=== PATIENT | female | born 1970 | race Caucasian/White ===

== ENCOUNTER 2018-07-07 13:25 | Inpatient (IN) ==
[2018-07-07] MEDS ORDERED: ACETAMINOPHEN 1,000 MG/100 ML VIAL IV STA (13:59)
[2018-07-07] MEDS ORDERED: SODIUM CHLORIDE 0.9% 1000ML 2,000 ML IV SCH (14:00)
--- NOTE | 2018-07-07 14:16 | XRay Report ---
XR chest 1V portable HISTORY: 47 years-old Female right abd Pain acute right-sided abdominal pain COMPARISON: Chest radiograph 09/04/2011 TECHNIQUE: Portable AP view of the chest FINDINGS: Cardiac mediastinal and hilar silhouettes are within normal limits. There is no pneumothorax, pleural effusion, focal airspace consolidation or overt pulmonary edema. Bones of the chest appear grossly i ntact. Imaged upper abdomen appears unremarkable. IMPRESSION: No acute process. The above report was generated using voice recognition software. It may contain grammatical, syntax o r spelling errors. Electronically signed by: Fuad Stroud M.D. 07/07/2018 2:14 PM
[2018-07-07 14:19] LABS: Basophils # (auto) 0.02 K/uL (0-0.2); Basophils % (auto) 0.1 %; Hemoglobin 12.1 g/dL (12.0-16.0); Immature Granulocytes # (auto) 0.08 K/uL (0.00-0.02); Immature Granulocytes % (auto) 0.4 %; Lymphocytes # (auto) 1.08 K/uL (1.2-3.4); Lymphocytes % (auto) 5.4 %; Mean Corpuscular Hgb Conc 35.6 g/dL (32-36); Mean Corpuscular Volume 85.2 fL (80-100); Mean Platelet Volume 10.1 fL (7.4-10.4); Monocytes # (auto) 1.62 K/uL (0.11-0.59); Monocytes % (auto) 8.1 %; Neutrophils # (auto) 17.11 K/uL (1.4-6.5); Platelet Count 242 K/uL (130-400); RDW Coefficient of Variation 12.7 % (11.5-14.5); RDW Standard Deviation 39.7 fL (36.4-46.3); Red Blood Count 3.99 M/uL (4.2-5.4); White Blood Count 19.91 K/uL (4.8-10.8)
[2018-07-07 14:27] LABS: Appearance Urine Cloudy (Clear); Bacteria Urine Automated 4+ (Negative); Bilirubin Urine Negative (Negative); Blood Urine 2+ (Negative); Color Urine Yellow; Glucose Urine UA Negative (Negative); Ketones Urine Negative (Negative); Leukocyte Esterase Urine 2+ (Negative); Nitrite Urine Positive (Negative); Protein Urine Negative (Negative); Specific Gravity Urine 1.011 (1.000-1.030); Urobilinogen Urine Negative (Negative); WBC Urine Automated >30 /hpf (0-5); pH Urine 6.5 (4.5-7.5)
[2018-07-07 14:32] LABS: Pregnancy Test, Serum Negative (Negative)
[2018-07-07 14:35] LABS: Alanine Aminotransferase 13 U/L (12-78); Albumin Level 3.3 gm/dl (3.4-5.0); Aspartate Aminotransferase 11 U/L (15-37); BUN Creatinine Ratio 7.7 (10-20); Blood Urea Nitrogen 6 mg/dl (7-18); Calcium 8.8 mg/dl (8.5-10.1); Carbon Dioxide 18 mmol/L (21-32); Chloride 105 mmol/L (98-107); Est GFR (African American) 104.9; Est GFR (Non-African American) 90.5; Glucose 107 mg/dl (70-99); Potassium 3.4 mmol/L (3.5-5.1); Sodium 133 mmol/L (136-145)
[2018-07-07 14:38] LABS: Albumin Globulin Ratio 0.9 (0.9-2); Alkaline Phosphatase 49 U/L (45-117); Bilirubin,Total 0.3 mg/dl (0.2-1); Globulin 3.7 gm/dl (2.5-4.0)
[2018-07-07] MEDS ORDERED: cefTRIAXone SODIUM 1,000 MG/50 ML BAG IV STA (14:51)
[2018-07-07] MEDS ORDERED: SODIUM CHLORIDE 0.9% 1000ML 1,000 ML IV ONE (14:52)
[2018-07-07] MEDS ORDERED: IOVERSOL 100ml IV PRN (16:18)
--- NOTE | 2018-07-07 16:31 | CT Scan Report ---
CT SCAN OF THE ABDOMEN AND PELVIS WITH IV CONTRAST CLINICAL HISTORY: Fever. Right lower quadrant and flank pain. COMPARISON STUDY: Radiographs of the lumbar spine dated 07/15/2007. TECHNIQUE: Following the IV administration of 91 cc of Optiray 320, CT scan of the abdomen and pelvi s is performed from the lung bases to the proximal femora. Images are reviewed in the axial, sagittal , and coronal planes. IV contrast was administered without complication. A dose lowering technique wa s utilized adhering to the principles of ALARA. CT DOSE: 252.61 mGy.cm FINDINGS: Lung bases: The heart is normal in size and without pericardial effusion. The lung bases are clear. Liver: The contrast-enhanced liver is normal in size, contour, and attenuation. There is no intrahepa tic biliary ductal dilatation. The hepatic veins and portal veins are patent. Gallbladder: Unremarkable. Spleen: Normal in size and attenuation. Pancreas: Unremarkable. Adrenal glands: Unremarkable. Kidneys: The contrast enhanced kidneys are normal in size and without hydronephrosis. There is mild f ullness of the right renal collecting system and the right ureter. There is urothelial thickening and enhancement seen involving the right kidney and the right ureter with mild surrounding inflammatory change. A 12 mm low-attenuation focus is present within the upper pole of the right kidney on image # 132. There is heterogeneous enhancement of the right kidney with a striated nephrogram. The left kidn ey enhances homogeneously. Abdominal vasculature: The abdominal aorta is normal in course and caliber. Bowel: The small bowel and colon are normal in course and caliber. The appendix is well-visualized a nd normal. Peritoneum: There is no intraperitoneal free air or abdominal ascites. Lymphadenopathy: None. Pelvic viscera: The bladder and uterus are normal as imaged. A tampon is in place. A 2.7 cm simple ap pearing dominant follicle is noted in the left ovary seen on image #309. Smaller follicles are noted in the right ovary. A small volume of free fluid is noted in the cul-de-sac. Skeletal structures: No lytic or blastic lesions are seen. Mild sclerotic change is noted in the sacr oiliac joints. IMPRESSION: 1. Findings are most atypical for pyelonephritis of the right kidney as detailed above. Correlation w ith clinical findings and urinalysis will be required. 2. There is heterogeneous perfusion of the right kidney with a 1.2 cm low-attenuation focus in the ri ght upper pole. This may represent developing phlegmon. No organized fluid collection is seen at this time to indicate abscess 3. The left kidney is normal in appearance. 4. There is trace nonspecific free fluid in the cul-de-sac and a dominant follicle noted in the left ovary. 5. The appendix is well-visualized and normal. Electronically signed by: Christian Bruno M.D. 07/07/2018 4:30 PM
[2018-07-07] MEDS ORDERED: SODIUM CHLORIDE 0.9% 1000ML 1,000 ML IV STA (17:33)
--- NOTE | 2018-07-07 18:26 | History & Physical Report ---
Date of Service July 07, 2018 Assessment & Plan (1) Sepsis: Appropriately resuscitated in the ER. Patient is feeling better. Lactate is normal. Continue IV fluids. (2) Acute pyelonephritis: Treating empirically with ceftriaxone pending urine and blood cultures. Urology is consulted for questionable collection of fluid or around this kidney. N.p.o. after midnight in case of procedure (3) Smoker: Advised to quit. Patient declines nicotine patch at this time. (4) Anxiety: Uses marijuana frequently. Advised to quit as this is hazardous to her health. May need to consider Ativan as needed (5) DVT prophylaxis: SCDs for now in the setting of possible procedure in a.m. If procedures not occur would give her chemoprophylaxis for DVT prevention. Full code Disposition-continue hospitalization pending urine cultures and clinical improvement. DO Lonny Olea Hospitalist History of Present Illness Chief Complaint: Right flank pain and fever times 3 days Primary Care Provider: NO PCP The patient is a 47-year-old female who presents with 3 days of right flank pain, chills, fevers, body aches. She reports of nausea and vomiting that began this morning prompting ER visit. She denies any cough or other respiratory symptoms. She denies any chest pain. She does report some dysuria and incomplete voiding. Workup reveals presence of infection in her urine and she did meet sepsis criteria and was resuscitated in the ER. CT scan of the abdomen pelvis reveals pyelonephritis of the right kidney associated with a 1.2 cm focus that may represent a developing phlegmon. No organized fluid collection was seen at the time of imaging to indicate abscess for sure. Aside from reporting significant thirst she is feeling better. Her pain is still present but is improved with Tylenol. She did have some vomiting associated with IV Tylenol but felt better with the oral Tylenol given to her. She smokes marijuana regularly. She is an active tobacco smoker. No other illicit drug use. Review of systems is otherwise negative. Allergies Allergy/AdvReac Type Severity Reaction Status Date / Time Penicillins Allergy Mild Unknown Unverified 07/07/18 15:53 Home Medications Home Medications Medication Instructions Recorded Confirmed Type fluticasone propionate [Flonase 1 spray INTRANASAL DAILY 07/07/18 07/07/18 History Allergy Relief] loratadine [Claritin] 10 mg PO DAILY 07/07/18 07/07/18 History Past Med/Surg History Medical History Allergic rhinitis Anxiety Marijuana smoker No significant family history No significant past surgical history Smoker Spontaneous pneumothorax Surgical History S/P lumbar laminectomy Family History Mother , at age 33 Colorectal cancer Social History Preferred Language: Indonesian Communication Ability: Effective Records Analysis Manager Required: No Beliefs That Will Affect Care: None Current Living Situation: Significant Other Other Information That Helps Us Care for You: No Feels Safe at Home: Yes Safety Concerns: Feels Safe At This Time Smoking Status: Current every day smoker Hx Alcohol Use: Yes Hx Substance Use: Yes Review of Systems At least ten systems were reviewed and negative except as indicated in HPI ab ove. Physical Exam Vital Signs (Past 24 Hours): Last Vital Signs Temp 37.2 C 07/07/18 18:00 Pulse 89 07/07/18 17:58 Resp 18 07/07/18 17:58 BP 100/60 07/07/18 17:58 Pulse Ox 99 07/07/18 17:58 CONSTITUTIONAL: WNWD, vitals as above, generally well-appearing EYES: normal conjuctivae, no scleral icterus ENT: MMM RESPIRATORY: clear to auscultation bilaterally, no crackles, rales or wheezes, normal respiratory effort CARDIOVASCULAR: regular rate and rhythm, S1 and 2 heard without murmurs, gallops or rubs, no JVD, no peripheral edema GASTROINTESTINAL: normal bowel sounds, soft, TTP on right abdomen, +CVA tenderness on right, nondistended. MUSCULOSKELETAL: strength 5/5 throughout, head is normocephalic and atraumatic SKIN: warm and dry NEUROLOGIC: CN 2-12 grossly intact, normal cognition, no gross focal deficits. PSYCHIATRIC: alert cooperative and oriented to person, place and time. Results & Data Laboratory Results Short CBC 07/07/18 Range/Units 13:54 WBC 19.91 H (4.8-10.8) K/uL Hgb 12.1 (12.0-16.0) g/dL Hct 34.0 L (37-47) % Plt Count 242 (130-400) K/uL BMP 07/07/18 13:54 Sodium 133 L Potassium 3.4 L Chloride 105 Carbon Dioxide 18 L BUN 6 L Creatinine 0.78 Glucose 107 H Calcium 8.8 Liver Function 07/07/18 Range/Units 13:54 Total Bilirubin 0.3 (0.2-1) mg/dl AST 11 L (15-37) U/L ALT 13 (12-78) U/L Alkaline Phosphatase 49 (45-117) U/L Albumin 3.3 L (3.4-5.0) gm/dl Urine 07/07/18 Range/Units 13:50 Urine Color Yellow Urine Appearance Cloudy H (Clear) Urine pH 6.5 (4.5-7.5) Ur Specific [place] 1.011 (1.000-1.030) Urine Protein Negative (Negative) Urine Glucose (UA) Negative (Negative) Diagnostic Findings CT a/p IMPRESSION: 1. Findings are most atypical for pyelonephritis of the right kidney as detailed above. Correlation with clinical findings and urinalysis will be required. 2. There is heterogeneous perfusion of the right kidney with a 1.2 cm low- attenuation focus in the right upper pole. This may represent developing phlegmon. No organized fluid collection is seen at this time to indicate abscess 3. The left kidney is normal in appearance. 4. There is trace nonspecific free fluid in the cul-de-sac and a dominant follicle noted in the left ovary. 5. The appendix is well-visualized and normal. XR chest 1V portable HISTORY: 47 years-old Female right abd Pain acute right-sided abdominal pain COMPARISON: Chest radiograph 09/04/2011 TECHNIQUE: Portable AP view of the chest FINDINGS: Cardiac mediastinal and hilar silhouettes are within normal limits. There is no pneumothorax, pleural effusion, focal airspace consolidation or overt pulmonary edema. Bones of the chest appear grossly intact. Imaged upper abdomen appears unremarkable. IMPRESSION: No acute process. Medications Administered Ioversol (Optiray 320 100ml) 91 ml IV ONCE PRN PRN Reason: Interaction Checking Stop: 07/11/18 16:17 Last Admin: 07/07/18 16:18 Dose: 91 ml Documented by: [id number] Ceftriaxone 1gm IV APAP 1gm IV Code Status & VTE Plan Code Status full VTE Prophylaxis Plan VTE Prophylaxis will be ordered: Yes Critical Care Time Critical Care Time: No
[2018-07-07] MEDS ORDERED: ONDANSETRON INJ 2 MG/ML 2 ML VIAL IV STA (19:09)
[2018-07-07] MEDS ORDERED: POLYETHYLENE (MIRALAX) 17 GM PACK PO PRN (20:15)
[2018-07-07] MEDS ORDERED: ONDANSETRON INJ 2 MG/ML 2 ML VIAL IV PRN (20:15)
[2018-07-07] MEDS ORDERED: ACETAMINOPHEN 325 MG TAB ONE (20:25)
--- NOTE | 2018-07-07 20:29 | Emergency Department Note ---
Entered by Thea Schulte acting as a scribe for Hansel Goyal MD History of Present Illness General Chief complaint: Flank Pain Stated complaint: SIDE/BACK PAIN,CHILLS, ACHES,FEVER,THIRSTY!! Time Seen by Provider: 07/07/18 13:55 Source: patient Limitations: no limitations History of Present Illness Provider complaint: flank pain Onset (ago): day(s) 3 Location: abdomen (flank ) Radiation: back Maximum Pain Intensity: 8 Associated symptoms: + denies other symptoms (congestion, burning with urination) and + nausea/vomiting; no cough The patient is a 47 year old female who presents to the Emergency Room with complaints of flank pain that began 3 days prior to arrival. The patient states that her flank pain radiates to her back. The patient states that she has nausea and vomiting but denies any cough, congestion, or burning with urination. The patient states that she had a follow-up appointment with her PCP and states that her PCP was concerned about her fast heart rate. The patient denies any other medical problems. The patient denies a history of kidney stones or having her gallbladder removed. Home Medications Home Medications Medication Instructions Recorded Confirmed Type fluticasone propionate [Flonase 1 spray INTRANASAL DAILY 07/07/18 07/07/18 History Allergy Relief] loratadine [Claritin] 10 mg PO DAILY 07/07/18 07/07/18 History Allergies Allergy/AdvReac Type Severity Reaction Status Date / Time Penicillins Allergy Mild Unknown Unverified 07/07/18 15:53 Past Med/Surg History Medical History Allergic rhinitis Anxiety Marijuana smoker No significant family history No significant past surgical history Smoker Spontaneous pneumothorax Surgical History S/P lumbar laminectomy Family History Mother , at age 33 Colorectal cancer Social History Preferred Language: Finnish Communication Ability: Effective 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 and A total of 10 systems reviewed and were otherwise negative See HPI for pertinent positives & negatives. A total of 10 systems reviewed and were otherwise negative. Physical Exam Vital Signs Vital Signs - 24 hr 07/07/18 13:29 07/07/18 13:59 07/07/18 14:38 Temperature 39.2 C H Temperature Source Oral Sepsis Recent Fever Within 48 Hours Yes Sepsis New/Unexplained Change in Mental Status No Sepsis Action Taken by Nursing No Action Required Pulse Rate 100 H 80 Pulse Rate [Apical] Pulse Rate [Right Finger] Pulse Rate from SpO2 Sensor Pulse Rhythm [Right Finger] Pulse Strength [Right Finger] Respiratory Rate 18 20 Respiratory Effort / Characteristics Non-Labored Respiratory Depth Normal Respiratory Pattern Blood Pressure 96/61 L 99/73 L Blood Pressure [Right Arm] Blood Pressure Mean 72 81 Blood Pressure Mean [Right Arm] Blood Pressure Position Sitting Blood Pressure Position [Right Arm] Pulse Oximetry 97 99 Oxygen Delivery Method Room Air Room Air 07/07/18 15:26 07/07/18 17:58 07/07/18 18:00 Temperature 37.4 C 37.2 C Temperature Source Oral Oral Sepsis Recent Fever Within 48 Hours Sepsis New/Unexplained Change in Mental Status Sepsis Action Taken by Nursing Pulse Rate 89 Pulse Rate [Apical] 89 Pulse Rate [Right Finger] Pulse Rate from SpO2 Sensor 90 Pulse Rhythm [Right Finger] Pulse Strength [Right Finger] Respiratory Rate 20 18 Respiratory Effort / Characteristics Respiratory Depth Respiratory Pattern Blood Pressure 100/60 Blood Pressure [Right Arm] 99/64 L Blood Pressure Mean 73 Blood Pressure Mean [Right Arm] 75 Blood Pressure Position Blood Pressure Position [Right Arm] Pulse Oximetry 99 99 Oxygen Delivery Method Room Air 07/07/18 19:42 07/07/18 20:31 07/07/18 22:20 Temperature 37.8 C H 37.1 C 37.7 C H Temperature Source Oral Oral Oral Sepsis Recent Fever Within 48 Hours Sepsis New/Unexplained Change in Mental Status Sepsis Action Taken by Nursing Pulse Rate Pulse Rate [Apical] 85 Pulse Rate [Right Finger] 85 Pulse Rate from SpO2 Sensor Pulse Rhythm [Right Finger] Regular Pulse Strength [Right Finger] Normal Respiratory Rate 18 20 Respiratory Effort / Characteristics Non-Labored Spontaneous Respiratory Depth Normal Respiratory Pattern Regular Blood Pressure Blood Pressure [Right Arm] 105/59 L 109/71 Blood Pressure Mean Blood Pressure Mean [Right Arm] 74 83 Blood Pressure Position Blood Pressure Position [Right Arm] Sitting Pulse Oximetry 98 100 Oxygen Delivery Method Room Air Room Air 07/07/18 23:08 Temperature 37.2 C Temperature Source Oral Sepsis Recent Fever Within 48 Hours Sepsis New/Unexplained Change in Mental Status Sepsis Action Taken by Nursing Pulse Rate Pulse Rate [Apical] Pulse Rate [Right Finger] 82 Pulse Rate from SpO2 Sensor Pulse Rhythm [Right Finger] Pulse Strength [Right Finger] Respiratory Rate 14 Respiratory Effort / Characteristics Respiratory Depth Respiratory Pattern Blood Pressure Blood Pressure [Right Arm] 93/55 L Blood Pressure Mean Blood Pressure Mean [Right Arm] 67 Blood Pressure Position Blood Pressure Position [Right Arm] Lying Pulse Oximetry 96 Oxygen Delivery Method Room Air GENERAL: Awake, alert, fatigued and uncomfortable-appearing, in no distress HENT: Normocephalic, atraumatic. Oropharynx with dry mucous membranes and otherwise unremarkable. EYES: Normal conjunctiva. Sclera non-icteric. NECK: Supple. No nuchal rigidity. FROM. No JVD. RESPIRATORY: Clear to auscultation. CARDIAC: Tachycardic rate, normal rhythm. Extremities warm and well perfused. Pulses equal. ABDOMEN: Soft, non-distended. Mild right flank and RLQ tenderness to palpation. No rebound or guarding. No masses. RECTAL: Deferred. MUSCULOSKELETAL: Chest examination reveals no tenderness. The back is symmetrical on inspection without obvious abnormality. There is no CVA tenderness to palpation. No joint edema. LOWER EXTREMITIES: Calves are equal size bilaterally and non-tender. No edema. No discoloration. NEURO: Normal sensorium. No sensory or motor deficits noted. SKIN: No rash or jaundice noted. Course 1412: The patient was evaluated in room C9, and a complete history and physical examination were performed. 1730: I discussed the patient's case with Dr. Divya Morel who will evaluate the patient for further hospitalization. Consultations Consultation #1: Dr. Divya Morel Time: 17:30 Administered Medications Acetaminophen (Tylenol) 650 mg PO Q4H PRN PRN Reason: pain/fever Stop: 08/06/18 20:14 Last Admin: 07/07/18 23:56 Dose: 650 mg Documented by: [id number] Sodium Chloride (Nss 1000ml) 1,000 mls @ 125 mls/hr IV .Q8H HERMAN Stop: 07/08/18 05:44 Last Admin: 07/07/18 21:46 Dose: 125 mls/hr Documented by: [id number] Ioversol (Optiray 320 100ml) 91 ml IV ONCE PRN PRN Reason: Interaction Checking Stop: 07/11/18 16:17 Last Admin: 07/07/18 16:18 Dose: 91 ml Documented by: [id number] Tramadol HCl (Ultram) 50 mg PO Q4H PRN PRN Reason: Pain Stop: 08/06/18 21:07 Last Admin: 07/07/18 21:30 Dose: 50 mg Documented by: [id number] Discontinued Medications Acetaminophen (Tylenol) Confirm Administered Dose 650 mg .ROUTE .STK-MED ONE Stop: 07/07/18 20:26 Last Admin: 07/07/18 20:30 Dose: 650 mg Documented by: [id number] Acetaminophen (Ofirmev) 1,000 mg in 100 mls @ 400 mls/hr IV NOW STA Stop: 07/07/18 14:13 Last Infusion: 07/07/18 14:58 Dose: 0 mls/hr Documented by: [id number] Admin: 07/07/18 14:38 Dose: 400 mls/hr Documented by: [id number] Sodium Chloride (Nss 1000ml) 2,000 mls @ 999 mls/hr IV .Q2H1M HERMAN Stop: 07/07/18 16:00 Last Infusion: 07/07/18 14:59 Dose: 0 mls/hr Documented by: [id number] Admin: 07/07/18 14:00 Dose: 999 mls/hr Documented by: [id number] Ceftriaxone Sodium (Rocephin) 1,000 mg in 50 mls @ 100 mls/hr IV NOW STA Stop: 07/07/18 15:20 Last Infusion: 07/07/18 16:30 Dose: 0 mls/hr Documented by: [id number] Admin: 07/07/18 16:00 Dose: 100 mls/hr Documented by: [id number] Sodium Chloride (Nss 1000ml) 1,000 mls @ 999 mls/hr IV .Q1H1M ONE Stop: 07/07/18 15:52 Last Infusion: 07/07/18 16:51 Dose: 0 mls/hr Documented by: [id number] Admin: 07/07/18 16:01 Dose: 999 mls/hr Documented by: [id number] Sodium Chloride (Nss 1000ml) 1,000 mls @ 125 mls/hr IV .Q8H STA Stop: 07/08/18 01:32 Last Infusion: 07/07/18 21:23 Dose: 0 mls/hr Documented by: [id number] Admin: 07/07/18 17:56 Dose: 125 mls/hr Documented by: [id number] Ondansetron HCl (Zofran) 4 mg IV NOW STA Stop: 07/07/18 19:10 Last Admin: 07/07/18 19:13 Dose: 4 mg Documented by: [id number] Medical Decision Making Differential Diagnosis Differential diagnosis: Etiologies such as renal colic, appendicitis, diverticulitis, mesenteric ischemia, aortic pathology, infections, inflammatory bowel disease, PUD, biliary pathology, UTI, as well as others were entertained. Medical Records Attestation: I reviewed the patient's medical records. Home Medications Current Medication List: was personally reviewed by me Laboratory Data Attestation: I reviewed the patient's lab results. Result diagrams: 07/07/18 13:54 07/07/18 13:54 Lab Results 07/07/18 07/07/18 07/07/18 Range/Units 13:50 13:50 13:54 WBC 19.91 H (4.8-10.8) K/uL RBC 3.99 L (4.2-5.4) M/uL Hgb 12.1 (12.0-16.0) g/dL Hct 34.0 L (37-47) % MCV 85.2 (80-100) fL MCH 30.3 (25-34) pg MCHC 35.6 (32-36) g/dL RDW Std Deviation 39.7 (36.4-46.3) fL RDW Coeff of Tamela 12.7 (11.5-14.5) % Plt Count 242 (130-400) K/uL MPV 10.1 (7.4-10.4) fL Immature Gran % (Auto) 0.4 % Neut % (Auto) 86.0 % Lymph % (Auto) 5.4 % [place] % (Auto) 8.1 % Eos % (Auto) 0.0 % Baso % (Auto) 0.1 % Immature Gran # (Auto) 0.08 H (0.00-0.02) K/uL Neut # (Auto) 17.11 H (1.4-6.5) K/uL Lymph # (Auto) 1.08 L (1.2-3.4) K/uL [place] # (Auto) 1.62 H (0.11-0.59) K/uL Eos # (Auto) 0.00 (0-0.5) K/uL Baso # (Auto) 0.02 (0-0.2) K/uL Sodium (136-145) mmol/L Potassium (3.5-5.1) mmol/L Chloride (98-107) mmol/L Carbon Dioxide (21-32) mmol/L Anion Gap (3-11) BUN (7-18) mg/dl Creatinine (0.6-1.2) mg/dl Est Cr Clr Drug Dosing Est GFR ( Amer) Est GFR (Non-Af Amer) BUN/Creatinine Ratio (10-20) Glucose (70-99) mg/dl Lactate (0.4-2.0) mmol/L Calcium (8.5-10.1) mg/dl Total Bilirubin (0.2-1) mg/dl AST (15-37) U/L ALT (12-78) U/L Alkaline Phosphatase (45-117) U/L Total Protein (6.4-8.2) gm/dl Albumin (3.4-5.0) gm/dl Globulin (2.5-4.0) gm/dl Albumin/Globulin Ratio (0.9-2) Lipase (73-393) U/L HCG, Qual (Negative) Urine Color Yellow Urine Appearance Cloudy H (Clear) Urine pH 6.5 (4.5-7.5) Ur Specific [place] 1.011 (1.000-1.030) Urine Protein Negative (Negative) Urine Glucose (UA) Negative (Negative) Urine Ketones Negative (Negative) Urine Blood 2+ H (Negative) Urine Nitrite Positive H (Negative) Urine Bilirubin Negative (Negative) Urine Urobilinogen Negative (Negative) Ur Leukocyte Esterase 2+ H (Negative) Urine WBC (Auto) >30 H (0-5) /hpf Urine RBC (Auto) 5-10 H (0-4) /hpf U Hyaline Cast (Auto) 1-5 (0-5) /lpf U Epithel Cells (Auto) 5-10 H (0-5) /lpf Urine Bacteria (Auto) 4+ H (Negative) POC Ur Test NEG (NEG) 07/07/18 07/07/18 07/07/18 Range/Units 13:54 13:54 15:43 WBC (4.8-10.8) K/uL RBC (4.2-5.4) M/uL Hgb (12.0-16.0) g/dL Hct (37-47) % MCV (80-100) fL MCH (25-34) pg MCHC (32-36) g/dL RDW Std Deviation (36.4-46.3) fL RDW Coeff of Tamela (11.5-14.5) % Plt Count (130-400) K/uL MPV (7.4-10.4) fL Immature Gran % (Auto) % Neut % (Auto) % Lymph % (Auto) % [place] % (Auto) % Eos % (Auto) % Baso % (Auto) % Immature Gran # (Auto) (0.00-0.02) K/uL Neut # (Auto) (1.4-6.5) K/uL Lymph # (Auto) (1.2-3.4) K/uL [place] # (Auto) (0.11-0.59) K/uL Eos # (Auto) (0-0.5) K/uL Baso # (Auto) (0-0.2) K/uL Sodium 133 L (136-145) mmol/L Potassium 3.4 L (3.5-5.1) mmol/L Chloride 105 (98-107) mmol/L Carbon Dioxide 18 L (21-32) mmol/L Anion Gap 10.0 (3-11) BUN 6 L (7-18) mg/dl Creatinine 0.78 (0.6-1.2) mg/dl Est Cr Clr Drug Dosing Not Reportable Est GFR ( Amer) 104.9 Est GFR (Non-Af Amer) 90.5 BUN/Creatinine Ratio 7.7 L (10-20) Glucose 107 H (70-99) mg/dl Lactate 0.7 (0.4-2.0) mmol/L Calcium 8.8 (8.5-10.1) mg/dl Total Bilirubin 0.3 (0.2-1) mg/dl AST 11 L (15-37) U/L ALT 13 (12-78) U/L Alkaline Phosphatase 49 (45-117) U/L Total Protein 7.0 (6.4-8.2) gm/dl Albumin 3.3 L (3.4-5.0) gm/dl Globulin 3.7 (2.5-4.0) gm/dl Albumin/Globulin Ratio 0.9 (0.9-2) Lipase 86 (73-393) U/L HCG, Qual Negative (Negative) Urine Color Urine Appearance (Clear) Urine pH (4.5-7.5) Ur Specific [place] (1.000-1.030) Urine Protein (Negative) Urine Glucose (UA) (Negative) Urine Ketones (Negative) Urine Blood (Negative) Urine Nitrite (Negative) Urine Bilirubin (Negative) Urine Urobilinogen (Negative) Ur Leukocyte Esterase (Negative) Urine WBC (Auto) (0-5) /hpf Urine RBC (Auto) (0-4) /hpf U Hyaline Cast (Auto) (0-5) /lpf U Epithel Cells (Auto) (0-5) /lpf Urine Bacteria (Auto) (Negative) POC Ur Test (NEG) Imaging Data Radiologist's Impression: Radiology results as stated below per my review and the radiologist's interpretation: XR chest 1V portable HISTORY: 47 years-old Female right abd Pain acute right-sided abdominal pain COMPARISON: Chest radiograph 09/04/2011 TECHNIQUE: Portable AP view of the chest FINDINGS: Cardiac mediastinal and hilar silhouettes are within normal limits. There is no pneumothorax, pleural effusion, focal airspace consolidation or overt pulmonary edema. Bones of the chest appear grossly intact. Imaged upper abdomen appears unremarkable. IMPRESSION: No acute process. The above report was generated using voice recognition software. It may contain grammatical, syntax or spelling errors. Electronically signed by: Fuad Stroud M.D. 07/07/2018 2:[address] SCAN OF THE ABDOMEN AND PELVIS WITH IV CONTRAST CLINICAL HISTORY: Fever. Right lower quadrant and flank pain. COMPARISON STUDY: Radiographs of the lumbar spine dated 07/15/2007. TECHNIQUE: Following the IV administration of 91 cc of Optiray 320, CT scan of the abdomen and pelvis is performed from the lung bases to the proximal femora. Images are reviewed in the axial, sagittal, and coronal planes. IV contrast was administered without complication. A dose lowering technique was utilized adhering to the principles of ALARA. CT DOSE: 252.61 mGy.cm FINDINGS: Lung bases: The heart is normal in size and without pericardial effusion. The lung bases are clear. Liver: The contrast-enhanced liver is normal in size, contour, and attenuation. There is no intrahepatic biliary ductal dilatation. The hepatic veins and portal veins are patent. Gallbladder: Unremarkable. Spleen: Normal in size and attenuation. Pancreas: Unremarkable. Adrenal glands: Unremarkable. Kidneys: The contrast enhanced kidneys are normal in size and without hydronephrosis. There is mild fullness of the right renal collecting system and the right ureter. There is urothelial thickening and enhancement seen involving the right kidney and the right ureter with mild surrounding inflammatory change. A 12 mm low-attenuation focus is present within the upper pole of the right kidney on image #132. There is heterogeneous enhancement of the right kidney with a striated nephrogram. The left kidney enhances homogeneously. Abdominal vasculature: The abdominal aorta is normal in course and caliber. Bowel: The small bowel and colon are normal in course and caliber. The appendix is well-visualized and normal. Peritoneum: There is no intraperitoneal free air or abdominal ascites. Lymphadenopathy: None. Pelvic viscera: The bladder and uterus are normal as imaged. A tampon is in place. A 2.7 cm simple appearing dominant follicle is noted in the left ovary seen on image #309. Smaller follicles are noted in the right ovary. A small volume of free fluid is noted in the cul-de-sac. Skeletal structures: No lytic or blastic lesions are seen. Mild sclerotic change is noted in the sacroiliac joints. IMPRESSION: 1. Findings are most atypical for pyelonephritis of the right kidney as detailed above. Correlation with clinical findings and urinalysis will be required. 2. There is heterogeneous perfusion of the right kidney with a 1.2 cm low- attenuation focus in the right upper pole. This may represent developing phlegmon. No organized fluid collection is seen at this time to indicate abscess 3. The left kidney is normal in appearance. 4. There is trace nonspecific free fluid in the cul-de-sac and a dominant follicle noted in the left ovary. 5. The appendix is well-visualized and normal. Electronically signed by: Christian Bruno M.D. 07/07/2018 4:30 PM ECG Data Attestation: I personally reviewed and interpreted this ECG as follows: Indication: abdominal pain Rate (beats per minute): 82 Rhythm: normal sinus Findings: + other (normal axis ); no acute ischemic change Blood Pressure Blood Pressure Findings: Low blood pressure MDM Narrative The patient is a pleasant 47-year-old woman who presents emergency department with fevers, chills, nausea/vomiting with worsening right flank and abdominal pain over the past several days per hpi. She was seen at her PCPs office and referred to the emergency department for further evaluation. On arrival patient is uncomfortable but no acute distress, febrile to 89.2 with heart rate in the 100s and blood pressure 90s/60-70s, which was stable. On exam the patient appears clinically dry. She has mild right flank/CVA and right lower quadrant tenderness. EKG without evidence of ischemia. Chest x-ray negative for pneumonia. WBC 19.9. Hemoglobin and platelets within normal limits. Chemistry with bicarb of 18 with normal anion gap likely related to patient's dehydration. Lactate within normal limits. UA demonstrates likely UTI with positive nitrites, LE 2+, WBC> 30, 4+ bacteria. CT abdomen pelvis demonstrates findings consistent with pyelonephritis with evidence of likely developing phlegmon to the right kidney without discrete fluid collection to suggest abscess. Patient was given 3L NS IVF boluses with improvement in her heart rate to the 80s, treated with ceftriaxone, given the patient has no history of drug resistant infections. Patient was updated on findings and agree with plan for admission. Case was discussed with Lonny Carr PA-C, who will evaluate the patient for admission they will reassess the patient and whether there is need for antibiotic escalation. Impression & Plan Acute pyelonephritis, Acute dehydration Critical Care Time I have personally spent greater than 35 minutes of critical care time in the direct management of this patient. This includes bedside care, interpretation of diagnostic studies, and testing, discussion with consultants, patient, and family members, and other required patient management activities. This 35 minutes is in excess of all separately billable procedures. Critical Care Time: Yes Total Critical Care Time: 35 Discharge Plan Visit Data *Final* Discharge Date/Time: 07/07/18 19:55 Chief Complaint: Flank Pain Stated Complaint: SIDE/BACK PAIN,CHILLS, ACHES,FEVER,THIRSTY!! Other Complaint: Flu Like Symptoms ED Provider: Hansel Goyal Discharge Problem: Acute pyelonephritis, Acute dehydration Patient Disposition: Admitted As Inpatient Discharge Instructions Interventions: ED Discharge Assessment Last Done: 07/07/18 19:55 The scribe's documentation has been prepared under my direction and personally reviewed by me in its entirety. I confirm that the note above accurately reflects all work, treatment, procedures, and medical decision making performed by me.
[2018-07-07] MEDS ORDERED: MoRPHine SULFATE 2 MG/ML CARP IV PRN (21:09)
[2018-07-07] MEDS: TRAMADOL HCL 50 MG TABLET PO PRN (21:30)
[2018-07-07] MEDS ORDERED: SODIUM CHLORIDE 0.9% 1000ML 1,000 ML IV SCH (21:45)
[2018-07-07] MEDS: ACETAMINOPHEN 325 MG TAB PO PRN (23:56)
[2018-07-08] MEDS: TRAMADOL HCL 50 MG TABLET PO PRN ×4 (02:40→19:48)
[2018-07-08] MEDS: SODIUM CHLORIDE 0.9% 1000ML 1,000 ML IV SCH ×2 (05:15→15:28)
[2018-07-08 05:49] LABS: Basophils # (auto) 0.02 K/uL (0-0.2); Basophils % (auto) 0.1 %; Eosinophils # (auto) 0.01 K/uL (0-0.5); Hematocrit (blood only) 30.1 % (37-47); Hemoglobin 10.3 g/dL (12.0-16.0); Immature Granulocytes # (auto) 0.09 K/uL (0.00-0.02); Immature Granulocytes % (auto) 0.4 %; Lymphocytes # (auto) 1.76 K/uL (1.2-3.4); Mean Corpuscular Hgb Conc 34.2 g/dL (32-36); Mean Platelet Volume 9.6 fL (7.4-10.4); Monocytes # (auto) 1.82 K/uL (0.11-0.59); Monocytes % (auto) 8.3 %; Neutrophils # (auto) 18.27 K/uL (1.4-6.5); Neutrophils % (auto) 83.2 %; Platelet Count 192 K/uL (130-400); RDW Coefficient of Variation 13.1 % (11.5-14.5); RDW Standard Deviation 42.7 fL (36.4-46.3); Red Blood Count 3.42 M/uL (4.2-5.4); White Blood Count 21.97 K/uL (4.8-10.8)
[2018-07-08 06:09] LABS: BUN Creatinine Ratio 7.9 (10-20); Creatinine Clr Calc Pharmacy 112.3 ml/min; Est GFR (African American) 134.5; Potassium 3.3 mmol/L (3.5-5.1)
[2018-07-08 06:15] LABS: INR 1.1 (0.9-1.1); Prothrombin Time 11.3 Seconds (9.0-12.0)
[2018-07-08] MEDS: LORATADINE 10 MG TAB PO SCH (08:40)
[2018-07-08] MEDS: FLUTICASONE PROPIONATE NA SPR 16 GM BTL NAE SCH (08:40)
--- NOTE | 2018-07-08 09:35 | Urology Consultation ---
Date of Consultation July 08, 2018 Assessment & Plan (1) Acute pyelonephritis: Patient appears to be responding clinically to antibiotics, feeling better. Will provide diet. ?fluid collection on CT: <2cm in size, will generally respond to antibiotic treatment. Patient will need a total of 30d of antibiotic coverage (ideally Cipro for penetration). Will arrange outpatient URO follow up with repeat imaging in 4-6 weeks. Should there be any decline in patient status, she will need repeat imaging sooner, possible percutaneous vs open drainage of fluid collection if increasing in size. Thank you for the consult. Will continue to follow with primary service for continued improvement. History of Present Illness Attending Physician: Nathan Coleman MD History of Present Illness 47YO female with pyelonephritis, ?fluid collection R kidney, sepsis. Reports feeling unwell earlier this week, fatigue, chills, R abdominal/flank pain. Minor "twinge" with urination. Was evaluated by PCP who recommended she report to ER/admission. Her CT upon arrival is reviewed: no hydronephrosis, 1.2cm ?fluid collection R upper pole. UC&S prelim+, remains on ceftriaxone. Patient reports feeling much better this morning since receiving antibiotics, fluids. Continues to experience some R flank pain. Voiding spontaneously without bother. No hematuria, no dysuria. Feels that her fevers are improving. Denies nausea. Allergies Allergy/AdvReac Type Severity Reaction Status Date / Time Penicillins Allergy Mild Unknown Unverified 07/07/18 15:53 Home Medications Home Medications Medication Instructions Recorded Confirmed Type fluticasone propionate [Flonase 1 spray INTRANASAL DAILY 07/07/18 07/07/18 History Allergy Relief] loratadine [Claritin] 10 mg PO DAILY 07/07/18 07/07/18 History Patient History Medical History Allergic rhinitis Anxiety Marijuana smoker No significant family history No significant past surgical history Smoker Spontaneous pneumothorax Surgical History S/P lumbar laminectomy Family History Mother , at age 33 Colorectal cancer Social History Preferred Language: Greenlandic Communication Ability: Effective 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 Beliefs That Will Affect Care: None Current Living Situation: Significant Other Other Information That Helps Us Care for You: No Feels Safe at Home: Yes Safety Concerns: Feels Safe At This Time Smoking Status: Current every day smoker Hx Alcohol Use: Yes Hx Substance Use: Yes Review of Systems Constitutional: + fever and + chills Ear, Nose, Mouth, Throat: no hearing loss Respiratory: no dyspnea Cardiovascular: no chest pain Gastrointestinal: + abdominal pain; no nausea and no vomiting Genitourinary (Female): + flank pain; no dysuria, no difficulty urinating and no hematuria Musculoskeletal: + back pain Integumentary: no problem reported Neurologic: no tingling and no numbness Psychiatric: no problem reported Physical Exam Vital Signs (Past 24 Hours): Last Vital Signs Temp 37.1 C 07/08/18 08:17 Pulse 80 07/08/18 08:17 Resp 18 07/08/18 08:17 BP 97/58 L 07/08/18 08:17 Pulse Ox 97 07/08/18 08:17 Constitutional: well developed and well nourished; no acute distress Neck: normal visual inspection Respiratory: normal respiratory effort Cardiovascular: Vessels: no JVD Extremities: no edema Gastrointestinal (Abdomen): Percussion/Palpation: + abdomen tender and abdomen soft Psychiatric: A+Ox3, euthymic affect
--- NOTE | 2018-07-08 09:42 | Hospitalist Progress Note ---
Date of Service July 08, 2018 Assessment & Plan (1) Sepsis: (2) Acute pyelonephritis: WBC 19k, temp 39.2, heart rate 100, BP 96/61 Source: Urosepsis and acute pyelonephritis Lactate 0.7 Received proper IV resuscitation along with broad-spectrum IV antibiotics while in ED Urine and blood culture pending Urine greater than 100k gram-negative bacilli Clinically improved this morning Continue IV ceftriaxone, increased to 2 g daily this morning Continue IVF 100 cc/h until tolerating p.o. intake Placed on full liquid diet this morning per patient request Follow CBC, BMP (3) Hypokalemia: K 3.4 yesterday and 3.3 today Likely in the setting of GI loss secondary to vomiting KCl 40 MEQ ordered this morning Repeat BMP (4) Hypocalcemia: correct Ca 7.5 Ca yesterday 8.8 check mag and ionized ca level repeat in a.m. (5) Smoker: Smoking cessation encouraged (6) Anxiety: mood stable, monitor (7) DVT prophylaxis: SCDS/Lovenox D/C lovenox when up and ambulating Full code Disposition-D/C to home when clinically able and cultures return Patient was seen and examined in collaboration with Dr. Coleman, please see addendum Supervising Physician Co-Signing Physician Notes Patient is seen and examined at bedside. States having some right-sided abdominal/flank discomfort. Nausea, vomiting resolved. Denies any chest pain, shortness of breath, dizziness. Family at bedside. On exam patient is moderately built and nourished, no apparent distress, normocephalic atraumatic, lungs are clear to auscultation, S1-S2, no murmur, abdomen right sided tenderness, no pedal edema, no focal deficits neurologically. Continue IV ceftriaxone for acute pyelonephritis. Cultures currently pending. Advance diet as tolerated. Replace potassium supplements. Appreciate urology input. I pers onally reviewed the record. Patient is interviewed and examined at bedside. Patient's care is coordinated with Lala Sherman PA-C. Please refer to the documentation above for details of patient's presentation and for discussion of other issues. Subjective Patient was seen and examined in room 355-2. Follow-up acute pyelonephritis. Overall patient clinically feeling improved from admission. Currently she is n.p.o. awaiting urology evaluation, she is requesting something to drink. She continues to have right-sided abdominal discomfort and mild right flank pain. Had epsiode of nausea/emesis around 4a.m. which has since resolved. Denies fever, chills, sweats, lightheadedness, dizziness, chest pain, shortness of breath, nausea, diarrhea. She does elicit to mild dysuria as well as increased frequency secondary to IV fluid. Denies tony hematuria. Physical Exam Vital Signs (Past 24 Hours): Last Vital Signs Temp 37.1 C 07/08/18 08:17 Pulse 80 07/08/18 08:17 Resp 18 07/08/18 08:17 BP 97/58 L 07/08/18 08:17 Pulse Ox 97 07/08/18 08:17 Physical Exam: Gen: WD/WN, F, lying in bed, NAD, A&O x3 HEENT: Normocephalic, atraumatic, conjunctivae moist, sclerae anicteric, mucous membranes moist. Lung: Clear to Auscultation bilaterally, no wheezes/rales/rhonchi Heart: Regular rate, regular rhythm, no murmurs, rubs, or gallops Abdomen: Soft, +right lower/upper quad discomfort, +R cva tenderness, no peritonitis, guarding or rigidity, ND +BS x 4 Extremities: No edema Skin: Warm, no rash, negative turgor. Results & Data Laboratory Results Short CBC 07/07/18 07/07/18 07/08/18 Range/Units 13:54 13:54 05:33 WBC 19.91 H 21.97 H (4.8-10.8) K/uL Hgb 12.1 10.3 L (12.0-16.0) g/dL Hct 34.0 L 30.1 L (37-47) % Plt Count 242 192 (130-400) K/uL Calcium 8.8 (8.5-10.1) mg/dl 07/08/18 Range/Units 05:33 WBC (4.8-10.8) K/uL Hgb (12.0-16.0) g/dL Hct (37-47) % Plt Count (130-400) K/uL Calcium 7.0 L D (8.5-10.1) mg/dl BMP 07/07/18 07/08/18 13:54 05:33 Sodium 133 L 141 D Potassium 3.4 L 3.3 L Chloride 105 114 H Carbon Dioxide 18 L 19 L BUN 6 L 4 L Creatinine 0.78 0.49 L Glucose 107 H 101 H Calcium 8.8 7.0 L D Liver Function 07/07/18 Range/Units 13:54 Total Bilirubin 0.3 (0.2-1) mg/dl AST 11 L (15-37) U/L ALT 13 (12-78) U/L Alkaline Phosphatase 49 (45-117) U/L Albumin 3.3 L (3.4-5.0) gm/dl Urine 07/07/18 Range/Units 13:50 Urine Color Yellow Urine Appearance Cloudy H (Clear) Urine pH 6.5 (4.5-7.5) Ur Specific [place] 1.011 (1.000-1.030) Urine Protein Negative (Negative) Urine Glucose (UA) Negative (Negative) Diagnostic Findings CT Abd/pelvis: IMPRESSION: 1. Findings are most atypical for pyelonephritis of the right kidney as detailed above. Correlation with clinical findings and urinalysis will be required. 2. There is heterogeneous perfusion of the right kidney with a 1.2 cm low- attenuation focus in the right upper pole. This may represent developing phlegmon. No organized fluid collection is seen at this time to indicate abscess 3. The left kidney is normal in appearance. 4. There is trace nonspecific free fluid in the cul-de-sac and a dominant follicle noted in the left ovary. 5. The appendix is well-visualized and normal. Medications Administered Acetaminophen (Tylenol) 650 mg PO Q4H PRN PRN Reason: pain/fever Stop: 08/06/18 20:14 Last Admin: 07/07/18 23:56 Dose: 650 mg Documented by: [id number] Fluticasone Propionate (Flonase) 1 sprays PATTI DAILY HERMAN Stop: 08/07/18 08:59 Last Admin: 07/08/18 08:40 Dose: Not Given Documented by: [id number] Sodium Chloride (Nss 1000ml) 1,000 mls @ 100 mls/hr IV .Q10H HERMAN Stop: 08/07/18 05:14 Last Infusion: 07/08/18 06:07 Dose: 100 mls/hr Documented by: [id number] Admin: 07/08/18 05:15 Dose: 100 mls/hr Documented by: [id number] Ioversol (Optiray 320 100ml) 91 ml IV ONCE PRN PRN Reason: Interaction Checking Stop: 07/11/18 16:17 Last Admin: 07/07/18 16:18 Dose: 91 ml Documented by: [id number] Loratadine (Claritin) 10 mg PO DAILY HERMAN Stop: 08/07/18 08:59 Last Admin: 07/08/18 08:40 Dose: Not Given Documented by: [id number] Ondansetron HCl (Zofran) 4 mg IV Q6H PRN PRN Reason: Nausea Stop: 08/06/18 20:14 Last Admin: 07/08/18 04:24 Dose: 4 mg Documented by: [id number] Tramadol HCl (Ultram) 50 mg PO Q4H PRN PRN Reason: Pain Stop: 08/06/18 21:07 Last Admin: 07/08/18 08:45 Dose: 50 mg Documented by: [id number] Admin: 07/08/18 02:40 Dose: 50 mg Documented by: [id number] Admin: 07/07/18 21:30 Dose: 50 mg Documented by: [id number] Discontinued Medications Acetaminophen (Tylenol) Confirm Administered Dose 650 mg .ROUTE .STK-MED ONE Stop: 07/07/18 20:26 Last Admin: 07/07/18 20:30 Dose: 650 mg Documented by: [id number] Acetaminophen (Ofirmev) 1,000 mg in 100 mls @ 400 mls/hr IV NOW STA Stop: 07/07/18 14:13 Last Infusion: 07/07/18 14:58 Dose: 0 mls/hr Documented by: [id number] Admin: 07/07/18 14:38 Dose: 400 mls/hr Documented by: [id number] Sodium Chloride (Nss 1000ml) 2,000 mls @ 999 mls/hr IV .Q2H1M HERMAN Stop: 07/07/18 16:00 Last Infusion: 07/07/18 14:59 Dose: 0 mls/hr Documented by: [id number] Admin: 07/07/18 14:00 Dose: 999 mls/hr Documented by: [id number] Ceftriaxone Sodium (Rocephin) 1,000 mg in 50 mls @ 100 mls/hr IV NOW STA Stop: 07/07/18 15:20 Last Infusion: 07/07/18 16:30 Dose: 0 mls/hr Documented by: [id number] Admin: 07/07/18 16:00 Dose: 100 mls/hr Documented by: [id number] Sodium Chloride (Nss 1000ml) 1,000 mls @ 999 mls/hr IV .Q1H1M ONE Stop: 07/07/18 15:52 Last Infusion: 07/07/18 16:51 Dose: 0 mls/hr Documented by: [id number] Admin: 07/07/18 16:01 Dose: 999 mls/hr Documented by: [id number] Sodium Chloride (Nss 1000ml) 1,000 mls @ 125 mls/hr IV .Q8H STA Stop: 07/08/18 01:32 Last Infusion: 07/07/18 21:23 Dose: 0 mls/hr Documented by: [id number] Admin: 07/07/18 17:56 Dose: 125 mls/hr Documented by: [id number] Sodium Chloride (Nss 1000ml) 1,000 mls @ 125 mls/hr IV .Q8H HERMAN Stop: 07/08/18 05:44 Last Infusion: 07/08/18 04:27 Dose: 0 mls/hr Documented by: [id number] Admin: 07/07/18 21:46 Dose: 125 mls/hr Documented by: [id number] Ondansetron HCl (Zofran) 4 mg IV NOW STA Stop: 07/07/18 19:10 Last Admin: 07/07/18 19:13 Dose: 4 mg Documented by: [id number] (1) Sepsis Sepsis type: sepsis due to unspecified organism Qualified Code(s): A41.9 - Sepsis, unspecified organism
[2018-07-08] MEDS ORDERED: POTASSIUM CHLORIDE 10 MEQ TABCR PO ONE (09:45)
[2018-07-08] MEDS: ACETAMINOPHEN 325 MG TAB PO PRN ×2 (10:52→15:14)
[2018-07-08] MEDS: ENOXAPARIN INJ 40 MG/0.4 ML SYR SQ SCH (10:55)
[2018-07-08] MEDS: cefTRIAXone SODIUM 2,000 MG in DEXTROSE 5% 50 ML IV SCH (15:15)
[2018-07-08] MEDS ORDERED: cefTRIAXone SODIUM 1,000 MG in DEXTROSE 5% 50 ML IV SCH (16:00)
[2018-07-09] MEDS: TRAMADOL HCL 50 MG TABLET PO PRN ×2 (02:47→07:32)
[2018-07-09 05:50] LABS: Basophils # (auto) 0.02 K/uL (0-0.2); Basophils % (auto) 0.1 %; Eosinophils # (auto) 0.07 K/uL (0-0.5); Eosinophils % (auto) 0.4 %; Hematocrit (blood only) 28.1 % (37-47); Hemoglobin 9.8 g/dL (12.0-16.0); Immature Granulocytes # (auto) 0.05 K/uL (0.00-0.02); Immature Granulocytes % (auto) 0.3 %; Lymphocytes # (auto) 2.74 K/uL (1.2-3.4); Lymphocytes % (auto) 17.4 %; Mean Corpuscular Hgb Conc 34.9 g/dL (32-36); Mean Platelet Volume 9.8 fL (7.4-10.4); Monocytes # (auto) 1.59 K/uL (0.11-0.59); Monocytes % (auto) 10.1 %; Neutrophils # (auto) 11.26 K/uL (1.4-6.5); Neutrophils % (auto) 71.7 %; Platelet Count 188 K/uL (130-400); RDW Coefficient of Variation 13.1 % (11.5-14.5); RDW Standard Deviation 42.6 fL (36.4-46.3); Red Blood Count 3.23 M/uL (4.2-5.4); White Blood Count 15.73 K/uL (4.8-10.8)
[2018-07-09 06:27] LABS: Calcium 7.4 mg/dl (8.5-10.1); Creatinine Clr Calc Pharmacy 112.3 ml/min; Est GFR (African American) 134.5; Potassium 3.4 mmol/L (3.5-5.1)
[2018-07-09] MEDS: ENOXAPARIN INJ 40 MG/0.4 ML SYR SQ SCH (07:25)
[2018-07-09] MEDS: LORATADINE 10 MG TAB PO SCH (07:25)
[2018-07-09] MEDS: FLUTICASONE PROPIONATE NA SPR 16 GM BTL NAE SCH (07:26)
[2018-07-09] MEDS ORDERED: POTASSIUM CHLORIDE 20 MEQ TABCR PO STA (07:38)
--- NOTE | 2018-07-09 09:44 | Hospitalist Progress Note ---
Date of Service July 09, 2018 Assessment & Plan (1) Sepsis: (2) Acute pyelonephritis: In ED pt met sepsis criteria WBC 19k, temp 39.2, heart rate 100, BP 96/61 Source: Urosepsis and acute pyelonephritis Lactate 0.7 Received proper IV resuscitation along with broad-spectrum IV antibiotics while in ED Urine greater than 100k E.Coli, pansensistive Blood culture NGTD No significant clinical improvement overnight but WBC trending down to 15k Given persistent abdominal discomfort and nausea will repeat CT scan of abd/pelvis with con Continue IV ceftriaxone Day #3, transition to cipro 500mg po bid when able ( 30 day course of antibiotics per urology) ADAT Follow CBC, BMP (3) Hypokalemia: K 3.4 today Likely in the setting of GI loss secondary to vomiting KCl 40 MEQ ordered this morning Repeat BMP (4) Hypocalcemia: correct Ca 7.9 Ca on admission 8.8 monitor and encourage Ca supplementation at discharge follow (5) Smoker: Smoking cessation encouraged (6) Anxiety: mood stable, monitor (7) DVT prophylaxis: SCDS/Lovenox D/C lovenox when up and ambulating Full code Disposition-D/C to home possibly tomorrow if improved Patient was seen and examined in collaboration with Dr. Coleman, please see addendum Supervising Physician Co-Signing Physician Notes Patient is seen and examined at bedside. Complains of right-sided abdominal pain. Repeat imaging suggestive of mild volume overload. Lasix given. Continue current IV antibiotics. Pain control. Potassium supplement replaced. Urine culture growing E. coli pansensitive. I personally reviewed the record. Right-sided abdominal tenderness on exam. patient's care is coordinated with Lala Sherman PA-C. Please refer to the documentation above for details of patient's presentation and for discussion of other issues. Subjective Patient was seen and examined in room 355-2. Follow-up acute pyelonephritis. Patient feels like she took step backward overnight. Didn't sleep well. Had episode of nausea. Continues to have R flank and R sided abdominal pain, 5/10 with tramadol and 8/10 when analgesia wears off. Pain is worse with rolling on left side and if she gets up and moves around. Feels 50% better but doesn't feel ready to go home. Denies f/c/s, dizziness, lightheaded, chest pain, sob, emesis, diarrhea, dyusria, hematuria, increased urgency. Still notes increased freq with urination but attributes that to her IVF. Appetite is improving and going to trial regular tray this a.m. Physical Exam Vital Signs (Past 24 Hours): Last Vital Signs Temp 36.8 C 07/09/18 06:56 Pulse 71 07/09/18 06:56 Resp 16 07/09/18 06:56 BP 96/62 L 07/09/18 06:56 Pulse Ox 97 07/09/18 06:56 Physical Exam: Gen: WD/WN, F, ill appearing, fatigue appearing, lying in bed, NAD, A&O x3 HEENT: Normocephalic, atraumatic, conjunctivae moist, sclerae anicteric, mucous membranes moist. Lung: Clear to Auscultation bilaterally, no wheezes/rales/rhonchi Heart: Regular rate, regular rhythm, no murmurs, rubs, or gallops Abdomen: Soft, +right lower/upper quad discomfort, +R cva tenderness, no peritonitis, guarding or rigidity, ND +BS x 4 Extremities: No edema Skin: Warm, no rash, negative turgor. Results & Data Laboratory Results 07/09/18 07/09/18 07/08/18 Range/Units 05:26 05:26 10:25 WBC 15.73 H (4.8-10.8) K/uL RBC 3.23 L (4.2-5.4) M/uL Hgb 9.8 L (12.0-16.0) g/dL Hct 28.1 L (37-47) % MCV 87.0 (80-100) fL MCH 30.3 (25-34) pg MCHC 34.9 (32-36) g/dL RDW Std Deviation 42.6 (36.4-46.3) fL RDW Coeff of Tamela 13.1 (11.5-14.5) % Plt Count 188 (130-400) K/uL MPV 9.8 (7.4-10.4) fL Immature Gran % (Auto) 0.3 % Neut % (Auto) 71.7 % Lymph % (Auto) 17.4 % [place] % (Auto) 10.1 % Eos % (Auto) 0.4 % Baso % (Auto) 0.1 % Immature Gran # (Auto) 0.05 H (0.00-0.02) K/uL Neut # (Auto) 11.26 H (1.4-6.5) K/uL Lymph # (Auto) 2.74 (1.2-3.4) K/uL [place] # (Auto) 1.59 H (0.11-0.59) K/uL Eos # (Auto) 0.07 (0-0.5) K/uL Baso # (Auto) 0.02 (0-0.2) K/uL Sodium 136 (136-145) mmol/L Potassium 3.4 L (3.5-5.1) mmol/L Chloride 110 H (98-107) mmol/L Carbon Dioxide 23 (21-32) mmol/L Anion Gap 3.0 (3-11) BUN 2 L (7-18) mg/dl Creatinine 0.49 L (0.6-1.2) mg/dl Est Cr Clr Drug Dosing 112.3 ml/min Est GFR ( Amer) 134.5 Est GFR (Non-Af Amer) 116.0 BUN/Creatinine Ratio 5.0 L (10-20) Glucose 90 (70-99) mg/dl Calcium 7.4 L (8.5-10.1) mg/dl Ionized Calcium 1.00 L (1.12-1.32) mmol/L Magnesium (1.8-2.4) mg/dl 07/08/18 Range/Units 10:25 WBC (4.8-10.8) K/uL RBC (4.2-5.4) M/uL Hgb (12.0-16.0) g/dL Hct (37-47) % MCV (80-100) fL MCH (25-34) pg MCHC (32-36) g/dL RDW Std Deviation (36.4-46.3) fL RDW Coeff of Tamela (11.5-14.5) % Plt Count (130-400) K/uL MPV (7.4-10.4) fL Immature Gran % (Auto) % Neut % (Auto) % Lymph % (Auto) % [place] % (Auto) % Eos % (Auto) % Baso % (Auto) % Immature Gran # (Auto) (0.00-0.02) K/uL Neut # (Auto) (1.4-6.5) K/uL Lymph # (Auto) (1.2-3.4) K/uL [place] # (Auto) (0.11-0.59) K/uL Eos # (Auto) (0-0.5) K/uL Baso # (Auto) (0-0.2) K/uL Sodium (136-145) mmol/L Potassium (3.5-5.1) mmol/L Chloride (98-107) mmol/L Carbon Dioxide (21-32) mmol/L Anion Gap (3-11) BUN (7-18) mg/dl Creatinine (0.6-1.2) mg/dl Est Cr Clr Drug Dosing ml/min Est GFR ( Amer) Est GFR (Non-Af Amer) BUN/Creatinine Ratio (10-20) Glucose (70-99) mg/dl Calcium (8.5-10.1) mg/dl Ionized Calcium (1.12-1.32) mmol/L Magnesium 1.8 (1.8-2.4) mg/dl Medications Administered Acetaminophen (Tylenol) 650 mg PO Q4H PRN PRN Reason: pain/fever Stop: 08/06/18 20:14 Last Admin: 07/08/18 15:14 Dose: 650 mg Documented by: [id number] Admin: 07/08/18 10:52 Dose: 650 mg Documented by: [id number] Admin: 07/07/18 23:56 Dose: 650 mg Documented by: [id number] Enoxaparin Sodium (Lovenox) 40 mg SQ QAM HERMAN Stop: 08/07/18 09:59 Last Admin: 07/09/18 07:25 Dose: 40 mg Documented by: [id number] Admin: 07/08/18 10:55 Dose: Not Given Documented by: [id number] Fluticasone Propionate (Flonase) 1 sprays PATTI DAILY [facility] Stop: 08/07/18 08:59 Last Admin: 07/09/18 07:26 Dose: 1 sprays Documented by: [id number] Admin: 07/08/18 08:40 Dose: Not Given Documented by: [id number] Ceftriaxone Sodium 2,000 mg/ (Dextrose) 70 mls @ 100 mls/hr IV Q24H HERMAN; Protocol Stop: 07/18/18 15:59 Last Infusion: 07/08/18 16:15 Dose: 0 mls/hr Documented by: [id number] Admin: 07/08/18 15:15 Dose: 100 mls/hr Documented by: [id number] Ioversol (Optiray 320 100ml) 91 ml IV ONCE PRN PRN Reason: Interaction Checking Stop: 07/11/18 16:17 Last Admin: 07/07/18 16:18 Dose: 91 ml Documented by: [id number] Loratadine (Claritin) 10 mg PO DAILY HERMAN Stop: 08/07/18 08:59 Last Admin: 07/09/18 07:25 Dose: 10 mg Documented by: [id number] Admin: 07/08/18 08:40 Dose: Not Given Documented by: [id number] Ondansetron HCl (Zofran) 4 mg IV Q6H PRN PRN Reason: Nausea Stop: 08/06/18 20:14 Last Admin: 07/08/18 04:24 Dose: 4 mg Documented by: [id number] Tramadol HCl (Ultram) 50 mg PO Q4H PRN PRN Reason: Pain Stop: 08/06/18 21:07 Last Admin: 07/09/18 07:32 Dose: 50 mg Documented by: [id number] Admin: 07/09/18 02:47 Dose: 50 mg Documented by: [id number] Admin: 07/08/18 19:48 Dose: 50 mg Documented by: [id number] Admin: 07/08/18 13:34 Dose: 50 mg Documented by: [id number] Admin: 07/08/18 08:45 Dose: 50 mg Documented by: [id number] Admin: 07/08/18 02:40 Dose: 50 mg Documented by: [id number] Admin: 07/07/18 21:30 Dose: 50 mg Documented by: [id number] Discontinued Medications Acetaminophen (Tylenol) Confirm Administered Dose 650 mg .ROUTE .STK-MED ONE Stop: 07/07/18 20:26 Last Admin: 07/07/18 20:30 Dose: 650 mg Documented by: [id number] Acetaminophen (Ofirmev) 1,000 mg in 100 mls @ 400 mls/hr IV NOW STA Stop: 07/07/18 14:13 Last Infusion: 07/07/18 14:58 Dose: 0 mls/hr Documented by: [id number] Admin: 07/07/18 14:38 Dose: 400 mls/hr Documented by: [id number] Sodium Chloride (Nss 1000ml) 2,000 mls @ 999 mls/hr IV .Q2H1M HERMAN Stop: 07/07/18 16:00 Last Infusion: 07/07/18 14:59 Dose: 0 mls/hr Documented by: [id number] Admin: 07/07/18 14:00 Dose: 999 mls/hr Documented by: [id number] Ceftriaxone Sodium (Rocephin) 1,000 mg in 50 mls @ 100 mls/hr IV NOW STA Stop: 07/07/18 15:20 Last Infusion: 07/07/18 16:30 Dose: 0 mls/hr Documented by: [id number] Admin: 07/07/18 16:00 Dose: 100 mls/hr Documented by: [id number] Sodium Chloride (Nss 1000ml) 1,000 mls @ 999 mls/hr IV .Q1H1M ONE Stop: 07/07/18 15:52 Last Infusion: 07/07/18 16:51 Dose: 0 mls/hr Documented by: [id number] Admin: 07/07/18 16:01 Dose: 999 mls/hr Documented by: [id number] Sodium Chloride (Nss 1000ml) 1,000 mls @ 125 mls/hr IV .Q8H STA Stop: 07/08/18 01:32 Last Infusion: 07/07/18 21:23 Dose: 0 mls/hr Documented by: [id number] Admin: 07/07/18 17:56 Dose: 125 mls/hr Documented by: [id number] Sodium Chloride (Nss 1000ml) 1,000 mls @ 125 mls/hr IV .Q8H HERMAN Stop: 07/08/18 05:44 Last Infusion: 07/08/18 04:27 Dose: 0 mls/hr Documented by: [id number] Admin: 07/07/18 21:46 Dose: 125 mls/hr Documented by: [id number] Sodium Chloride (Nss 1000ml) 1,000 mls @ 100 mls/hr IV .Q10H HERMAN Stop: 08/07/18 05:14 Last Infusion: 07/09/18 06:53 Dose: 0 mls/hr Documented by: [id number] Infusion: 07/09/18 06:53 Dose: 0 mls/hr Documented by: [id number] Admin: 07/08/18 15:28 Dose: 100 mls/hr Documented by: [id number] Infusion: 07/08/18 15:15 Dose: 100 mls/hr Documented by: [id number] Infusion: 07/08/18 06:07 Dose: 100 mls/hr Documented by: [id number] Admin: 07/08/18 05:15 Dose: 100 mls/hr Documented by: [id number] Ondansetron HCl (Zofran) 4 mg IV NOW STA Stop: 07/07/18 19:10 Last Admin: 07/07/18 19:13 Dose: 4 mg Documented by: [id number] Potassium Chloride (Klor-Con M10) 40 meq PO NOW ONE Stop: 07/08/18 09:46 Last Admin: 07/08/18 10:54 Dose: 40 meq Documented by: [id number] Potassium Chloride (Klor-Con M20) 40 meq PO NOW STA Stop: 07/09/18 07:39 Last Admin: 07/09/18 08:10 Dose: 40 meq Documented by: [id number] (1) Sepsis Sepsis type: Escherichia coli Qualified Code(s): A41.51 - Sepsis due to Escherichia coli [E. coli]
[2018-07-09] MEDS ORDERED: SODIUM CHLORIDE 0.9% 500 ML IV SCH (10:00)
[2018-07-09] MEDS ORDERED: TRAMADOL HCL 50 MG TABLET PO PRN (10:13)
[2018-07-09] MEDS ORDERED: IOVERSOL 100ml IV PRN (10:38)
--- NOTE | 2018-07-09 11:04 | CT Scan Report ---
CT abd pelvis IV con only CLINICAL HISTORY: 47 years-old Female presenting with continued abd pain f/u phlegmon. TECHNIQUE: Multidetector CT of the abdomen and pelvis was performed after the administration of intra venous contrast. IV contrast: 93 mL of Optiray 320. One or more dose lowering techniques were used co nsistent with the principles of ALARA (as low as reasonably achievable), including automatic exposure control, mA or kV adjustment to individual patient size, and/or use of iterative reconstruction. COMPARISON: 07/07/2018. CT DOSE (mGy.cm): The estimated cumulative dose is 267.03 mGy.cm. FINDINGS: [employer] topogram: Unremarkable. Lung bases: Normal heart size. Interval development of a small to moderate right pleural effusion, wh ich is simple appearing. Interlobular septal thickening at the right lung base new from prior. Depend ent consolidation volume loss consistent with passive atelectasis in the setting of the effusion new from prior. Trace left pleural effusion and trace left basilar atelectasis also new from prior. Liver: Normal morphology. No liver lesion. Patent hepatic vasculature. Prominent periportal edema. Biliary: No intrahepatic or extrahepatic biliary ductal dilatation. Vicarious excretion of contrast m ay be present within the gallbladder versus layering high density sludge. Gallbladder wall thickening may be secondary to the presence of periportal edema. Pancreas: Normal. Spleen: Normal. Adrenal glands: Normal. Kidneys and ureters: Focal cortical nonenhancement at the upper pole the right kidney similar to prio r exam. This region measures 1.3 cm (series 3 image 129). Additional vague area of hypoenhancement no brittney posteriorly at the upper pole slightly inferior to the previously mentioned region (series 3 imag e 140). No hydronephrosis. Urothelial thickening evident on the right. The ureter is poorly defined a nd grossly nondistended. Bladder: Distended and normal. Pelvic organs: Uterus and ovaries normal. Bowel: Normal. No bowel obstruction. The presumed appendix is grossly normal allowing for suboptimal visualization. Peritoneal cavity: Small volume of abdominopelvic ascites. No free intraperitoneal gas. Lymph nodes: No enlarged lymph nodes in the abdomen or pelvis. Vasculature: Aorta and IVC patent and normal in caliber. Abdominal wall: Few foci of gas in the anterior abdominal wall likely related to injection. Mild body wall edema. Musculoskeletal: Normal. IMPRESSION: 1. Findings consistent with volume overload with body wall edema, ascites, pleural effusions, and pe riportal edema new from prior. Congestive changes at the right lung base also evident. No tony pulmo nary edema at this time. 2. Gallbladder wall thickening is likely secondary to the presence of volume overload/periportal rosa elena ma. 3. Unchanged appearance of the focal cortical nonenhancing region at the upper pole the right kidney with a more ill-defined hypoenhancing region slightly more inferiorly. This remains concerning for d eveloping phlegmon. No discrete renal abscess. No hydronephrosis. 4. Urothelial thickening on the right decreased from prior, consistent with improving upper tract in fection. Electronically signed by: Zoran Kirby M.D. 07/09/2018 11:02 AM
--- NOTE | 2018-07-09 12:17 | Urology Progress Note ---
Date of Service July 09, 2018 Assessment & Plan (1) Acute pyelonephritis: Patient continues to clinically improve with antibiotics. Please see consultation note for antibiotic recommendations. Continue pain control PRN. Worrisome symptoms reviewed with patient. Outpatient URO follow up has been arranged. Thank you for allowing us to participate in the care of this patient. Please contact our service with additional questions/concerns. Subjective 47YO female with pyelonephritis, ?fluid collection R kidney, sepsis. Patient continues to clinically improve with IV antibiotics. Reports feeling "better." No fevers overnight. Some nausea this morning. Still experiencing R flank pain. Voiding spontaneously without bother. Physical Exam Vital Signs (Past 24 Hours): Last Vital Signs Temp 36.8 C 07/09/18 06:56 Pulse 71 07/09/18 06:56 Resp 16 07/09/18 06:56 BP 96/62 L 07/09/18 06:56 Pulse Ox 97 07/09/18 06:56 Physical Exam: WN/WD NAD. Resp effort normal. No JVD, no edema. Abd soft +R flank tenderness. Bladder non distended. A&O x 3, appropriate affect.
[2018-07-09] MEDS ORDERED: FUROSEMIDE 20 MG in SYRINGE 0 ML IV ONE (13:00)
[2018-07-09] MEDS: ACETAMINOPHEN 325 MG TAB PO PRN (15:15)
[2018-07-09] MEDS: cefTRIAXone SODIUM 2,000 MG in DEXTROSE 5% 50 ML IV SCH (15:16)
[2018-07-09] MEDS: KETOROLAC 30 MG/ML VIAL IV PRN (20:50)
[2018-07-10] MEDS: KETOROLAC 30 MG/ML VIAL IV PRN (05:44)
[2018-07-10 05:51] LABS: Hemoglobin 10.6 g/dL (12.0-16.0); Mean Corpuscular Hgb Conc 35.3 g/dL (32-36); Mean Corpuscular Volume 86.7 fL (80-100); Mean Platelet Volume 9.9 fL (7.4-10.4); Platelet Count 220 K/uL (130-400); RDW Coefficient of Variation 12.9 % (11.5-14.5); RDW Standard Deviation 41.4 fL (36.4-46.3); Red Blood Count 3.46 M/uL (4.2-5.4); White Blood Count 8.56 K/uL (4.8-10.8)
[2018-07-10 06:24] LABS: BUN Creatinine Ratio 8.6 (10-20); Calcium 8.1 mg/dl (8.5-10.1); Creatinine Clr Calc Pharmacy 112.3 ml/min; Est GFR (African American) 134.5; Potassium 3.4 mmol/L (3.5-5.1)
[2018-07-10] MEDS: ACETAMINOPHEN 325 MG TAB PO PRN (07:34)
[2018-07-10] MEDS: ENOXAPARIN INJ 40 MG/0.4 ML SYR SQ SCH (08:46)
[2018-07-10] MEDS: LORATADINE 10 MG TAB PO SCH (08:46)
[2018-07-10] MEDS: FLUTICASONE PROPIONATE NA SPR 16 GM BTL NAE SCH (08:46)
[2018-07-10] MEDS ORDERED: POTASSIUM CHLORIDE 10 MEQ TABCR PO STA (09:28)
--- NOTE | 2018-07-10 14:27 | Hospitalist Progress Note ---
Date of Service July 10, 2018 Assessment & Plan (1) Sepsis: Due to Acute Pyelonephritis (2) Acute pyelonephritis: Sepsis --CT ABD: Findings are most atypical for pyelonephritis of the right kidney as detailed above. Correlation with clinical findings and urinalysis will be required. There is heterogeneous perfusion of the right kidney with a 1.2 cm low-attenuation focus in the right upper pole. This may represent developing phlegmon. No organized fluid collection is seen at this time to indicate abscess. The left kidney is normal in appearance. There is trace nonspecific free fluid in the cul-de-sac and a dominant follicle noted in the left ovary. The appendix is well-visualized and normal. --Normal Lactate levels Urine Cx:E.Coli, massey sensistive Received IV fluids Blood culture: No growth to date Continue IV ceftriaxone Day #4, transition to cipro 500mg po bid ( 30 day course of antibiotics as per urology) Clinically improved (3) Hypokalemia: Likely due to GI loses replace electrolytes as needed (4) Hypocalcemia: Monitor and replace as needed (5) Smoker: Smoking cessation encouraged (6) Anxiety: stable Monitor (7) DVT prophylaxis: SCDS/Lovenox Code Status Full code Subjective Patient was seen and examined at bedside Doing well today Very minimal R Flank/Abdominal pain No fever Denies chest pain, SOB, dizziness, vomiting Family at bedside Physical Exam Vital Signs (Past 24 Hours): Last Vital Signs Temp 36.5 C 07/10/18 07:44 Pulse 55 L 07/10/18 07:44 Resp 16 07/10/18 07:44 BP 102/57 L 07/10/18 07:44 Pulse Ox 97 07/10/18 07:44 Physical Exam: Physical Exam: Vitals signs as noted above General Appearance:Thin, no apparent distress Head: normocephalic, Atraumatic Eyes: normal inspection, EOMI Neck: supple, Trachea midline Respiratory/Chest: Normal breath sounds, CTA Cardiovascular: S1, S2, No murmur Abdomen/GI:Soft, mild R flank tender, Bowel sounds present Extremities/Musculoskelatal:normal inspection, no edema Neurologic/Psych:AAOX3, grossly no focal neurological deficits Skin: normal color, warm Results & Data Laboratory Results Short CBC 07/10/18 Range/Units 05:22 WBC 8.56 (4.8-10.8) K/uL Hgb 10.6 L (12.0-16.0) g/dL Hct 30.0 L (37-47) % Plt Count 220 (130-400) K/uL [facility] 07/10/18 05:22 Sodium 138 Potassium 3.4 L Chloride 108 H Carbon Dioxide 26 BUN 4 L Creatinine 0.49 L Glucose 79 Calcium 8.1 L (1) Sepsis Sepsis type: Escherichia coli Qualified Code(s): A41.51 - Sepsis due to Escherichia coli [E. coli]
--- NOTE | 2018-07-10 14:46 | Discharge Summary ---
Date of Service July 10, 2018 Admission HPI Per Admitting Provider The patient is a 47-year-old female who presents with 3 days of right flank pain, chills, fevers, body aches. She reports of nausea and vomiting that began this morning prompting ER visit. She denies any cough or other respiratory symptoms. She denies any chest pain. She does report some dysuria and incomplete voiding. Workup reveals presence of infection in her urine and she did meet sepsis criteria and was resuscitated in the ER. CT scan of the abdomen pelvis reveals pyelonephritis of the right kidney associated with a 1.2 cm focus that may represent a developing phlegmon. No organized fluid collection was seen at the time of imaging to indicate abscess for sure. Aside from reporting significant thirst she is feeling better. Her pain is still present but is improved with Tylenol. She did have some vomiting associated with IV Tylenol but felt better with the oral Tylenol given to her. She smokes marijuana regularly. She is an active tobacco smoker. No other illicit drug use. Review of systems is otherwise negative. Admission Exam Per Admitting Provider CONSTITUTIONAL: WNWD, vitals as above, generally well-appearing EYES: normal conjuctivae, no scleral icterus ENT: MMM RESPIRATORY: clear to auscultation bilaterally, no crackles, rales or wheezes, normal respiratory effort CARDIOVASCULAR: regular rate and rhythm, S1 and 2 heard without murmurs, gallops or rubs, no JVD, no peripheral edema GASTROINTESTINAL: normal bowel sounds, soft, TTP on right abdomen, +CVA tenderness on right, nondistended. MUSCULOSKELETAL: strength 5/5 throughout, head is normocephalic and atraumatic SKIN: warm and dry NEUROLOGIC: CN 2-12 grossly intact, normal cognition, no gross focal deficits. PSYCHIATRIC: alert cooperative and oriented to person, place and time. Principal Diagnosis Discharge Information Discharge Diagnosis Acute Pyelonephritis Discharge Goals Decrease discomfort,Improve disease control, Improve function Discharge Activity Limitations Resume your previous activity Discharge Data Allergies Allergy/AdvReac Type Severity Reaction Status Date / Time Penicillins Allergy Mild Unknown Unverified 07/07/18 15:53 Consultations 07/07/18 17:33 ED Decision to Admit Stat 07/07/18 20:15 Consult Urology Routine Procedures Performed CT ABD: 1. Findings are most atypical for pyelonephritis of the right kidney as detailed above. Correlation with clinical findings and urinalysis will be required. 2. There is heterogeneous perfusion of the right kidney with a 1.2 cm low- attenuation focus in the right upper pole. This may represent developing phlegmon. No organized fluid collection is seen at this time to indicate abscess 3. The left kidney is normal in appearance. 4. There is trace nonspecific free fluid in the cul-de-sac and a dominant follicle noted in the left ovary. 5. The appendix is well-visualized and normal. Ordered Studies 07/07/18 14:17 CT abd pelvis IV con only Stat 07/09/18 10:00 CT abd pelvis IV con only Routine Hospital Course (1) Sepsis: Due to Acute Pyelonephritis (2) Acute pyelonephritis: Sepsis --CT ABD: Findings are most atypical for pyelonephritis of the right kidney as d etailed above. Correlation with clinical findings and urinalysis will be required. There is heterogeneous perfusion of the right kidney with a 1.2 cm low-attenuation focus in the right upper pole. This may represent developing phlegmon. No organized fluid collection is seen at this time to indicate abscess. The left kidney is normal in appearance. There is trace nonspecific free fluid in the cul-de-sac and a dominant follicle noted in the left ovary. The appendix is well-visualized and normal. --Normal Lactate levels Urine Cx:E.Coli, massey sensistive Received IV fluids Blood culture: No growth to date Continue IV ceftriaxone Day #4, transition to cipro 500mg po bid ( 30 day course of antibiotics as per urology) Clinically improved (3) Hypokalemia: Likely due to GI loses replace electrolytes as needed (4) Hypocalcemia: Monitor and replace as needed (5) Smoker: Smoking cessation encouraged (6) Anxiety: stable Monitor (7) DVT prophylaxis: SCDS/Lovenox Code Status Full code Total Time Total Time Spent Total Time Spent (In Minutes): 38 minutes Total Time Includes: Examination of the Patient, Discharge Planning, Medication Reconciliation, Communication With Other Providers and Other Discharge Plan Discharge Items Patient Disposition: Home - Self-Care Reason For Visit: ACUTE PYELONEPHRITIS Discharge Diagnosis: Acute Pyelonephritis Discharge Goals: Decrease discomfort, Improve disease control and Improve function Activity: Resume your previous activity Exercise/Sports: Gradually increase as tolerated Non-emergency contact: Primary Care Provider and Urologist Call non-emergency contact if: you have any medication questions, your symptoms worsen, your pain is not controlled, your pain is worsening, your pain is unusual for you, your pain is concerning for you and you have a fever Follow-up/Referrals: PCP,NO [Primary Care Provider] - Diet: Heart Healthy Addtl Provider Instructions: Follow up with your PCP on 07/15/18 at 10:45 pm Follow up with your Urologist in [address] abdomen in 4-6 weeks and follow up with your Urologist Get blood test (Basic Metabolic Panel) in 2 weeks and follow up with your Ph ysician Complete the antibiotic course as per the recommendations of your Urologist Seek immediate medical attention if your symptoms reoccur or worsen Prescriptions: New tramadol 50 mg Tablet 50 mg PO Q6H PRN (Reason: pain) 5 Days Qty: 15 RF: 0 ciprofloxacin HCl 500 mg tablet 500 mg PO BID 24 Days Qty: 48 RF: 0 Continued fluticasone propionate [Flonase Allergy Relief] 50 mcg/actuation [place],Suspension 1 spray INTRANASAL DAILY RF: 0 loratadine [Claritin] 10 mg Tablet 10 mg PO DAILY RF: 0 Stand-Alone Forms: [facility] [facility]/Other Patient Handouts: Tramadol Hydrochloride Oral tablet Discharge Orders: Discharge Order (Routine); Ordered 07/10/18 Ordered By: Nathan Coleman Admission Data Admit Date/Time: 07/07/18 18:26 Attending Provider: Nathan Coleman Admit Provider: Kathy Napoles Primary Care Provider: PCP,NO Other Providers: Kathy Napoles ; Jacoby Villatoro Gary K Service: Surgical Services Other Interventions: Discharge Summary Assessment (RN) Last Done: 07/10/18 15:44 Pending Studies at Discharge: No DC Date/Time DO NOT enter until pt leaves facility: 07/10/18 16:35
== END 2018-07-10 16:35 | disposition home or self-care (01) | DRG 872 ==
LOC: ED 13:25 → SUATTDRO 18:26 → 3W 18:26